=== PATIENT | female | born 1980 | race Caucasian/White ===

== ENCOUNTER → 2016-06-28 | Outpatient (CLI) | payer OTHER | END | disposition home or self-care (01) | LOC: LAB 17:07 | PROVIDERS: ATTEND Psychiatry & Neurology Psychiatry | DX: F11.20 Opioid dependence, uncomplicated (principal); Z79.899 Other long term (current) drug therapy | CPT/HCPCS: 80306 ==

== ENCOUNTER 2017-01-13 20:49 | Emergency (ER) | payer OTHER ==
[2017-01-13 21:05] VITALS: RESP 20
--- NOTE | 2017-01-13 21:12 | ED ---
Abdominal Pain HPI - General Chief Complaint: Abdominal Pain Stated Complaint: constipation Time Seen by Provider: 01/13/17 21:03 Source: patient, RN notes reviewed Mode of arrival: ambulatory Limitations: no limitations - History of Present Illness Initial Comments: 36-year-old female presents to emergency Department chief complaint constipation. Patient states she has not had a bowel movement in 6 days. She states that she feels severely constipated is causing some pain. Patient states that she has not tried any esun-jxv-fcizlrm laxatives, stool softener for an was. She states that her mother was on the way to emergency department so she figured she does come here. Patient denies any nausea, vomiting, fever, chills. Patient does have some urinary frequency no dysuria denies any flank pain denies any chance of . Patient states she does have an IUD in place. Patient denies any vaginal bleeding or vaginal discharge. Patient has ALLERGY to codeine. - Related Data Home Medications Medication Instructions Recorded Confirmed Pregabalin [Lyrica] 200 mg PO BID 01/13/17 01/13/17 QUEtiapine [SEROquel] 200 mg PO BID 01/13/17 01/13/17 Sertraline [Zoloft] 200 mg PO DAILY 01/13/17 01/13/17 cloNIDine HCL [Catapres] 0.1 mg PO BID 01/13/17 01/13/17 Allergies Allergy/AdvReac Type Severity Reaction Status Date / Time codeine Allergy Unknown Verified 01/13/17 21:20 Review of Systems ROS Statement: Those systems with pertinent positive or pertinent negative responses have been documented in the HPI. ROS Other: All systems not noted in ROS Statement are negative. Past Medical History Additional Past Medical History / Comment(s): hepatitis c, closed head injury History of Any Multi-Drug Resistant Organisms: None Reported Past Surgical History: Tonsillectomy Additional Past Surgical History / Comment(s): L hand surgery, Past Psychological History: Anxiety, Depression Smoking Status: Current every day smoker Past Alcohol Use History: None Reported Past Drug Use History: None Reported General Exam Limitations: no limitations General appearance: alert, in no apparent distress Head exam: Present: atraumatic, normocephalic, normal inspection Respiratory exam: Present: normal lung sounds bilaterally. Absent: respiratory distress, wheezes, rales, rhonchi, stridor Cardiovascular Exam: Present: regular rate, normal rhythm, normal heart sounds. Absent: systolic murmur, diastolic murmur, rubs, gallop, clicks GI/Abdominal exam: Present: soft, tenderness (Minimal diffuse), normal bowel sounds. Absent: distended, guarding, rebound, rigid Back exam: Absent: CVA tenderness (R), CVA tenderness (L) Skin exam: Present: warm, dry, intact, normal color. Absent: rash Course Vital Signs 01/13/17 21:03 Temperature 99.1 F Pulse Rate 98 Respiratory 20 Rate Blood Pressure 137/83 O2 Sat by Pulse 98 Oximetry Medical Decision Making - Medical Decision Making 36-year-old female presented emergency department for constipation. Patient's x -ray does show constipation. She was given and Motrin large bowel. She states she does feel improved from nap states that she now has some cramping nausea. Patient we given Zofran. Return parameters were discussed. Patient be discharged with magnesium citrate to continue bowel movements. Return parameters were discussed. Disposition Clinical Impression: Constipation Disposition: HOME SELF-CARE Condition: Stable Instructions: Constipation (ED) Additional Instructions: Please return to the Emergency Department if symptoms worsen or any other concerns. Referrals: Aj Galeana MD [Primary Care Provider] - 1-2 days Time of Disposition: 22:18
--- NOTE | 2017-01-13 21:47 | XR ---
EXAMINATION TYPE: XR KUB DATE OF EXAM: 01/13/2017 CLINICAL HISTORY: Constipation for one week TECHNIQUE: Supine, upright, and left side down lateral decubitus views of the abdomen are obtained. COMPARISON: 08/13/2012 FINDINGS: Scattered gas is seen in non-distended small bowel loops. Moderate amount of gas and fecal material is seen in non-distended colon. There is no visceromegaly, pneumoperitoneum, or abnormal calcification appreciated. The lung bases are clear and the osseous structures are intact. Midline i ntrauterine device is noted within the pelvis. IMPRESSION: Moderate amount of retained colonic stool within the nondilated colon and overall nonobst ructive bowel gas pattern.
[2017-01-13] MEDS ORDERED: ONDANSETRON ODT 4 MG TAB PO STA (22:14)
[2017-01-13] MEDS ORDERED: DICYCLOMINE 20 MG TAB PO STA (22:14)
[2017-01-13] MEDS ORDERED: MAGNESIUM CITRATE 296 ML BOTTLE PO ONE (22:17)
[2017-01-13 22:31] VITALS: BP 132/78; PULSE 68; TEMP 97.9
== END 2017-01-13 22:31 | disposition home or self-care (01) ==
LOC: EC 20:49
DX: K59.00 Constipation, unspecified (principal); F32.9 Major depressive disorder, single episode, unspecified; F41.9 Anxiety disorder, unspecified; F17.200 Nicotine dependence, unspecified, uncomplicated; Z97.5 Presence of (intrauterine) contraceptive device; Z88.5 Allergy status to narcotic agent; Z79.899 Other long term (current) drug therapy
CPT/HCPCS: 74000; 99284

== ENCOUNTER 2018-10-18 13:27 | Inpatient (IN) | payer OTHER ==
[2018-10-18] MEDS ORDERED: TERBUTALINE 1 MG/ML VIAL SQ PRN (15:33)
[2018-10-18] MEDS ORDERED: CARBOPROST TROMETHAMINE 250 MCG/ML 1 ML AMP IM PRN (15:33)
[2018-10-18] MEDS ORDERED: OXYTOCIN 10 UNIT/ML 1 ML VIAL IM PRN (15:33)
[2018-10-18] MEDS ORDERED: LIDOCAINE 0.5% (PF) 5 MG/ML (50 ML SDV) SQ PRN (15:33)
[2018-10-18] MEDS ORDERED: METHYLERGONOVINE 0.2 MG/ML 1 ML AMP IM PRN (15:33)
[2018-10-18] MEDS ORDERED: fentaNYL (PF) 50 MCG/ML 5 ML AMP ONE (16:00)
[2018-10-18] MEDS ORDERED: ROPIVACAINE 5MG/ML 20ML VIAL ONE (16:00)
[2018-10-18] MEDS ORDERED: SODIUM CHLORIDE 0.9% 100 ML BAG ONE (16:00)
[2018-10-18] MEDS: LACTATED RINGERS 1,000 ML IV SCH ×2 (16:13→16:58)
[2018-10-18 16:19] LABS: Basophils % (A) 0 %; Eosinophils # (A) 0.2 k/uL (0-0.7); Eosinophils % (A) 1 %; HGB 10.5 gm/dL (11.4-16.0); Lymphocytes % (A) 11 %; MCH 29.1 pg (25.0-35.0); MCHC 32.7 g/dL (31.0-37.0); MCV 88.9 fL (80.0-100.0); Mean Platelet Volume 9.5; Monocytes # (A) 0.7 k/uL (0-1.0); Monocytes % (A) 4 %; Neutrophils # (A) 15.3 k/uL (1.3-7.7); Neutrophils % (A) 84 %; Platelet Count 294 k/uL (150-450); RDW 15.7 % (11.5-15.5); WBC 18.3 k/uL (3.8-10.6)
[2018-10-18 16:22] LABS: Amphetamine Screen,Urine Detected (NotDetected); Barbiturate Screen,Urine Not Detected (NotDetected); Benzodiazepines Screen,Urine Not Detected (NotDetected); Cocaine Screen,Urine Not Detected (NotDetected); Methadone Screen, Urine Not Detected (NotDetected); Opiate Screen,Urine Detected (NotDetected); Oxycodone Screen, Urine Not Detected (NotDetected); Phencyclidine Screen,Urine Not Detected (NotDetected); Tricyclic Antidepressant,Urine Not Detected (NotDetected); Urn Cannabinoid Scrn Not Detected (NotDetected)
--- NOTE | 2018-10-18 16:30 | P.HPOB ---
History of Present Illness H&P Date: 10/18/18 Chief Complaint: IUP @ 37 0/7 weeks, active labor This is a 37-year-old 4 para 3003 at 37-0/7 weeks with an estimated due date of 11/08/18 based on last menstrual period patient presents with complaints of regular painful contractions. On initial physical exam her cervix to be 3 cm an hour later she progressed to 4-5 cm. Patient was admitted to labor and delivery for expectant management. Patient has a significant history of bipolar/substance abuse on Suboxone, smoking, anemia. Patient has been receiving care with Dr. Potts for since 30 weeks of gestation. On bloodwork should a blood type of AB+, rubella immune, RPR nonreactive, hepatitis B surface negative, HIV negative, urine drug screen was positive for amphetamines. One-hour Glucola was normal at 102, GBS is negative on 10/09/18. Review of Systems Constitutional: Reports anorexia, Denies chills, Denies fatigue, Denies fever Ears, nose, mouth and throat: Denies headache Cardiovascular: Denies leg edema Respiratory: Denies dyspnea Gastrointestinal: Denies constipation, Denies diarrhea, Denies nausea, Denies vomiting Genitourinary: Reports Past Medical History Additional Past Medical History / Comment(s): hepatitis c, closed head injury History of Any Multi-Drug Resistant Organisms: None Reported Past Surgical History: Tonsillectomy Additional Past Surgical History / Comment(s): L hand surgery, Past Anesthesia/Blood Transfusion Reactions: No Reported Reaction Past Psychological History: Anxiety, Depression Smoking Status: Current every day smoker Past Alcohol Use History: None Reported Past Drug Use History: None Reported - Past Family History Mother Family Medical History: No Reported History Medications and Allergies Home Medications Medication Instructions Recorded Confirmed Type Pregabalin [Lyrica] 200 mg PO BID 01/13/17 10/18/18 History Buprenorphine HCl/Naloxone HCl 1 film PO BID 10/18/18 10/18/18 History [Suboxone 8 mg-2 mg Sl Film] Lisdexamfetamine Dimesylate 1 cap PO DAILY 10/18/18 10/18/18 History [Vyvanse] Venlafaxine HCl [Effexor] 1 tab PO DAILY 10/18/18 10/18/18 History lamoTRIgine [LaMICtal] 1 tab PO DAILY 10/18/18 10/18/18 History Allergies Allergy/AdvReac Type Severity Reaction Status Date / Time codeine Allergy Unknown Verified 10/18/18 13:46 Exam Osteopathic Statement: *. No significant issues noted on an osteopathic s tructural exam other than those noted in the History and Physical/Consult. Vital Signs Temp Pulse Resp BP 10/18/18 15:31 97.2 F L 115 H 18 127/85 Intake and Output 10/18/18 10/18/18 10/18/18 06:59 14:59 22:59 Other: Weight 165 kg Targeted physical exam is performed in this date in general this is a well-nourished well-developed female in no acute distress, breathing is noted to be nonlabored, heart is known to have a regular rate and rhythm, abdomen is noted be gravid, on cervical exam she is 6/100/-2 amniotomy is performed and clear fluid was obtained. heart tones are noted to be category 1 and she is jairo every 2-3 minutes. Results Result Diagrams: 10/18/18 15:43 Abnormal Lab Results - Last 24 Hours (Table) 10/18/18 10/18/18 Range/Units 15:43 16:00 WBC 18.3 H (3.8-10.6) k/uL RBC 3.60 L (3.80-5.40) m/uL Hgb 10.5 L (11.4-16.0) gm/dL Hct 32.0 L (34.0-46.0) % RDW 15.7 H (11.5-15.5) % Neutrophils # 15.3 H (1.3-7.7) k/uL Urine Opiates Screen Detected H (NotDetected) Ur Amphetamines Screen Detected H (NotDetected) Assessment and Plan (1) Term Current Visit: Yes Status: Acute Code(s): Z34.90 - ENCNTR FOR SUPRVSN OF NORMAL , UNSP, UNSP TRIMESTER SNOMED Code(s): 28981532 (2) Active labor Current Visit: Yes Status: Acute Code(s): CYD2391 - SNOMED Code(s): 355104496 Plan: Plan expectant management, she does request epidural placement and anesthesia was notified. Anticipate spontaneous vaginal delivery this afternoon.
[2018-10-18] MEDS ORDERED: OXYTOCIN 30 UNITS/500 ML NS 30 UNIT in SALINE 1 500ML.BAG IV SCH (17:00)
[2018-10-18] MEDS ORDERED: ACETAMINOPHEN TAB 325 MG TAB PO PRN (18:59)
[2018-10-18] MEDS ORDERED: BENZOCAINE/MENTHOL SPRAY 1 GM/SPRAY AEROSOL TOPICAL PRN (18:59)
[2018-10-18] MEDS ORDERED: HYDROcodone/APAP 5-325MG 1 EACH TAB PO PRN (18:59)
[2018-10-18] MEDS ORDERED: diphenhydrAMINE 50 MG CAP PO PRN (18:59)
[2018-10-18] MEDS ORDERED: SIMETHICONE 80 MG CHEWABLE PO PRN (18:59)
[2018-10-18] MEDS ORDERED: ZOLPIDEM 5 MG TAB PO PRN (18:59)
[2018-10-18] MEDS ORDERED: LANOLIN CREAM 5 GM TUBE TOPICAL PRN (18:59)
[2018-10-18] MEDS ORDERED: HYDROCORTISONE 2.5% RECTAL CREAM 30 GM TUBE RECTAL PRN (18:59)
[2018-10-18] MEDS ORDERED: diphenhydrAMINE 25 MG CAP PO PRN (18:59)
[2018-10-18] MEDS ORDERED: WITCH HAZEL 1 EACH MED..PAD TOPICAL PRN (18:59)
[2018-10-18] MEDS ORDERED: diphenhydrAMINE 50 MG/ML 1 ML VIAL IVP PRN ×2 (18:59)
[2018-10-18] MEDS ORDERED: OXYTOCIN 20 UNITS/1000 ML NS 1,000 ML IV SCH (19:00)
--- NOTE | 2018-10-18 19:03 | P.PROBDLV ---
Vaginal Delivery Note - . Vaginal Delivery Note: This is a 37-year-old 4 para 3003 that presented to labor and delivery with complaints of regular painful contractions. Patient was noting green discharge in addition amnio sure was negative. Patient did progress from 3-4-5 cm over an hour. Patient was admitted to labor and delivery and amniotomy was performed clear fluid was obtained. Patient requested epidural was placed by anesthesia without difficulty. Patient had contractions that were noted to be spacing out every 10 minutes and irregular nature after epidural placement therefore Pitocin augmentation of labor was begun. Patient progressed to complete began pushing and had a normal spontaneous vaginal delivery of a viable male infant at 1844, Apgars of 8 and 9 at one and 5 minutes respectively. Weight is pending as infant was being assessed by the delivery technician. Afterwards the umbilical cord was doubly clamped and cut and the placenta was delivered spontaneously intact with a three-vessel cord being noted. On inspection the patient's vaginal vault no lacerations were noted. Uterus is noted to be firm and below the umbilicus and lochia was minimal at this time. Estimated blood loss 200 mL, patient and infant tolerated delivery well and are resting comfortably of note WERE correct 2.
[2018-10-18] MEDS: IBUPROFEN 600 MG TAB PO PRN (19:38)
[2018-10-18] MEDS: SENNOSIDES-DOCUSATE SODIUM 1 EACH TAB PO SCH (21:23)
[2018-10-18] MEDS: PREGABALIN 100 MG CAP PO SCH (21:37)
[2018-10-19] MEDS: IBUPROFEN 600 MG TAB PO PRN ×4 (04:09→22:55)
[2018-10-19 05:40] LABS: Basophils % (A) 0 %; Eosinophils # (A) 0.1 k/uL (0-0.7); Eosinophils % (A) 1 %; HCT 30.9 % (34.0-46.0); HGB 10.2 gm/dL (11.4-16.0); Lymphocytes # (A) 2.5 k/uL (1.0-4.8); Lymphocytes % (A) 16 %; MCH 29.6 pg (25.0-35.0); MCHC 32.9 g/dL (31.0-37.0); MCV 89.9 fL (80.0-100.0); Mean Platelet Volume 10.1; Monocytes # (A) 0.6 k/uL (0-1.0); Monocytes % (A) 4 %; Neutrophils # (A) 12.1 k/uL (1.3-7.7); Neutrophils % (A) 78 %; Platelet Count 233 k/uL (150-450); RBC 3.44 m/uL (3.80-5.40); RDW 15.4 % (11.5-15.5); WBC 15.5 k/uL (3.8-10.6)
[2018-10-19] MEDS: SENNOSIDES-DOCUSATE SODIUM 1 EACH TAB PO SCH ×2 (08:08→20:08)
--- NOTE | 2018-10-19 08:37 | P.PNOBGVD ---
Subjective - Subjective Principal diagnosis: PPD 1 Interval history: Patient is doing well. She is involuting and voiding without difficulty. She states her lochia is moderate. She is bottle feeding. Pain is controlled with ibuprofen. Patient reports: Reports appetite normal, Reports voiding normally, Reports pain well controlled, Reports ambulating normally [place]: doing well (In the special care nursery) Objective - Latest Vital Signs Latest vital signs: Vital Signs Temp Pulse Resp BP 10/19/18 08:00 97.6 F 81 16 129/81 10/19/18 04:00 97.8 F 89 16 119/85 10/19/18 00:00 98.1 F 98 16 140/87 10/18/18 21:01 105 H 16 141/95 10/18/18 20:31 99 16 143/99 10/18/18 20:01 99 16 143/99 10/18/18 19:46 98 16 141/107 10/18/18 19:31 106 H 16 138/93 10/18/18 19:16 100 18 130/93 10/18/18 19:01 102 H 16 125/85 10/18/18 15:31 97.2 F L 115 H 18 127/85 Intake and Output 10/18/18 10/19/18 10/19/18 22:59 06:59 14:59 Intake Total 582.75 1600 Balance 582.75 1600 Intake: IV 1600 Oxytocin 20 Units/1000 ml 1600 Ns 1,000 ml @ Per Protocol IV .Q0M CAITLIN Rx#: [id number] Intake, IV Titration 582.75 Amount Oxytocin 20 Units/1000 ml 582.75 Ns 1,000 ml @ Per Protocol IV .Q0M CAITLIN Rx#: [id number] Other: # Voids 1 1 - Exam Extremities: Present: normal Abdomen: Present: normal appearance, soft Uterus: Present: normal, firm - Labs Labs: Abnormal Lab Results - Last 24 Hours (Table) 10/18/18 10/18/18 10/19/18 Range/Units 15:43 16:00 05:30 WBC 18.3 H 15.5 H (3.8-10.6) k/uL RBC 3.60 L 3.44 L (3.80-5.40) m/uL Hgb 10.5 L 10.2 L (11.4-16.0) gm/dL Hct 32.0 L 30.9 L (34.0-46.0) % RDW 15.7 H (11.5-15.5) % Neutrophils # 15.3 H 12.1 H (1.3-7.7) k/uL Urine Opiates Screen Detected H (NotDetected) Ur Amphetamines Screen Detected H (NotDetected) Assessment and Plan (1) Term Current Visit: Yes Status: Acute Code(s): Z34.90 - ENCNTR FOR SUPRVSN OF NORMAL , UNSP, UNSP TRIMESTER SNOMED Code(s): 80601125 (2) Active labor Current Visit: Yes Status: Acute Code(s): FKX0215 - SNOMED Code(s): 697670769 (3) Status post vaginal delivery Current Visit: Yes Status: Acute Code(s): UQM7440 - SNOMED Code(s): 938513757 Plan: remains in the special care nursery therefore Priyanka would like to stay until tomorrow. She is doing well overall and I anticipate discharge tomorrow morning.
[2018-10-19] MEDS: VENLAFAXINE HCL ER 75 MG CAP PO SCH (09:04)
[2018-10-19] MEDS: lamoTRIgine 100 MG TAB PO SCH (09:05)
[2018-10-19] MEDS: [UNRECOGNIZED DRUG - OTHER] PO SCH (10:26)
[2018-10-19] MEDS: PREGABALIN 100 MG CAP PO SCH ×2 (10:27→20:08)
[2018-10-20] MEDS: [UNRECOGNIZED DRUG - OTHER] PO SCH (08:00)
[2018-10-20] MEDS: SENNOSIDES-DOCUSATE SODIUM 1 EACH TAB PO SCH ×2 (08:00→21:07)
[2018-10-20] MEDS: PREGABALIN 100 MG CAP PO SCH ×2 (08:00→21:08)
--- NOTE | 2018-10-20 08:41 | P.DS ---
Providers Date of admission: 10/18/18 15:20 Expected date of discharge: 10/20/18 Attending physician: Jessica Kyle Primary care physician: Stated None Hospital Course: This is a 37-year-old white female 4 para 3003 who presented at 37 weeks gestation, with strong regular uterine contractions in active labor. is essentially unremarkable, group B strep cultures negative, rubella status immune, blood type AB+. Please see dictated history and physical for details. Artificial amniorrhexis revealed clear fluid. Patient went on to swiftly deliver a liveborn male with scores of 8 and 9 at one and 5 minutes respectively. He weighed 6 lbs. 14 oz. or 3110 g. There was said to be a slightly foul odor at the time of delivery. Please see dictated delivery note for details. This morning the patient is doing well. She is voiding, ambulating and passing flatus without difficulty. Vital signs are stable and she is afebrile. Fundus is firm and in the midline, symmetric and 18 week size. Extremities are negative for edema. visitor services specialist consult has been ordered, it is pending this morning. [place] is in the nursery, and is not judged to be stable yet for discharge home. She'll services consultation has been completed, patient will be discharged home later today. I have reminded her no intercourse, tampons or douching. She will use [id number] Motrin products as needed for pain. I've asked her to call me with any fevers shakes or chills, foul smelling or copious lochia, with the passage of large blood clots, with any pain not alleviated by nowr-aqn-djiuogk Advil or Aleve, or indeed with any concerns. Circumcision will be performed on the baby when cleared by pediatricians. Patient Condition at Discharge: Good Plan - Discharge Summary Discharge Rx Participant: Yes New Discharge Prescriptions: No Action Pregabalin [Lyrica] 200 mg PO BID lamoTRIgine [LaMICtal] 1 tab PO DAILY Venlafaxine HCl [Effexor] 1 tab PO DAILY Buprenorphine HCl/Naloxone HCl [Suboxone 8 mg-2 mg Sl Film] 1 film PO BID Lisdexamfetamine Dimesylate [Vyvanse] 1 cap PO DAILY Discharge Medication List Pregabalin [Lyrica] 200 mg PO BID 01/13/17 [History] Buprenorphine HCl/Naloxone HCl [Suboxone 8 mg-2 mg Sl Film] 1 film PO BID 10/18/18 [History] Lisdexamfetamine Dimesylate [Vyvanse] 1 cap PO DAILY 10/18/18 [History] Venlafaxine HCl [Effexor] 1 tab PO DAILY 10/18/18 [History] lamoTRIgine [LaMICtal] 1 tab PO DAILY 10/18/18 [History] Follow up Appointment(s)/Referral(s): Ara Potts MD [STAFF PHYSICIAN] - 6 Weeks
[2018-10-20] MEDS: lamoTRIgine 100 MG TAB PO SCH (08:42)
[2018-10-20] MEDS: VENLAFAXINE HCL ER 75 MG CAP PO SCH (08:43)
[2018-10-20] MEDS: IBUPROFEN 600 MG TAB PO PRN ×3 (08:43→21:08)
[2018-10-20 10:50] LABS: Uric Acid 4.2 mg/dL (3.7-7.4)
[2018-10-20] MEDS: LABETALOL 200 MG TAB PO SCH (18:59)
--- NOTE | 2018-10-20 19:09 | P.CONS ---
History of Present Illness - Reason for Consult Consult date: 10/20/18 Elevated BP Requesting physician: Ara Potts - Chief Complaint Elevated BP - History of Present Illness 37-year-old female with PMH of hepatitis C, bipolar, anxiety and depression, previous history of drug use currently in a rehab program presented to the ED for painful contractions. She had a normal spontaneous vaginal delivery on 10/18/2018. There were no complications reported. [facility] has been consulted for medical management of this patient due to elevated blood pressure. Patient has been seeing Dr. Potts since 30 weeks gestation for care. Patient has never had an elevated BP during her visits. Patient's blood pressure today has been running high as high as 150/100. Patient reports a history of hypertension after one of her pregnancies, was on antihypertensives for 6 weeks. Patient complains that she suffered dizziness as a side effect of that medication. Patient also reports that she has been prescribed Catapres to take as needed for high BP. She has never been formally diagnosed with high blood pressure. Patient denies any history of cardiac or kidney disease. Patient denies diabetes mellitus or hyperlipidemia. Patient currently denies any headaches, nausea/vomiting, chest pain, shortness of breath, dizziness, numbness/weakness/tingling. Review of Systems Pertinent positives and negatives as discussed in HPI, a complete review of systems was performed and all other systems are negative. Past Medical History Additional Past Medical History / Comment(s): hepatitis c, closed head injury History of Any Multi-Drug Resistant Organisms: None Reported Past Surgical History: Tonsillectomy Additional Past Surgical History / Comment(s): L hand surgery, Past Anesthesia/Blood Transfusion Reactions: No Reported Reaction Past Psychological History: Anxiety, Depression Smoking Status: Current every day smoker Past Alcohol Use History: None Reported Past Drug Use History: None Reported - Past Family History Mother Family Medical History: No Reported History Medications and Allergies Home Medications Medication Instructions Recorded Confirmed Type Pregabalin [Lyrica] 200 mg PO BID 01/13/17 10/18/18 History Buprenorphine HCl/Naloxone HCl 1 film PO BID 10/18/18 10/18/18 History [Suboxone 8 mg-2 mg Sl Film] Lisdexamfetamine Dimesylate 1 cap PO DAILY 10/18/18 10/18/18 History [Vyvanse] Venlafaxine HCl [Effexor] 1 tab PO DAILY 10/18/18 10/18/18 History lamoTRIgine [LaMICtal] 1 tab PO DAILY 10/18/18 10/18/18 History Allergies Allergy/AdvReac Type Severity Reaction Status Date / Time codeine Allergy Unknown Verified 10/18/18 13:46 Physical Exam Vitals: Vital Signs Temp Pulse Resp BP Pulse Ox 10/20/18 15:43 150/100 10/20/18 15:39 147/92 10/20/18 15:35 98.2 F 64 18 147/104 99 10/20/18 13:00 98.2 F 90 18 147/88 98 10/20/18 08:41 98.0 F 65 18 148/91 98 10/19/18 23:28 97.6 F 69 18 127/91 100 General: [non toxic], [no distress], [appears at stated age] Derm: [warm], [dry] Head: [atraumatic], [normocephalic], [symmetric] Psych: [Alert], [oriented], [appropriate affect] Results CBC & Chem 7: 10/19/18 05:30 Labs: Abnormal Lab Results - Last 24 Hours (Table) 10/20/18 Range/Units 09:38 AST 42 H (14-36) U/L Assessment and Plan Assessment: Assessment and Plan 1. Elevated BP 2. Abnormal UDS 3. Leukocytosis 4. Anemia 5. Elevated AST 1. BP as high as 150/100. Patient reports never being diagnosed with hypertension. Low concerns for help syndrome or for preeclampsia. Patient also appears very anxious at this time and combative with nurses which could be elevating her BP. Plan: Discussed with Dr. Potts, plans to start Labetalol 200 mg by mouth twice a day. Vital sign assessment every 8 hours. Ensure adequate pain management. Ensure the patient is calm, allowed to see her baby. 2. Amphetamine on drug screen likely secondary to home medication use for ADHD. Patient states that she is on Suboxone, but unsure why UDS is positive for opiates. 3. Leukocytosis of 15.2 with neutrophilia. No signs of infection. Patient is afebrile. Likely secondary to stressors of . Plans: Continue to monitor. 4. Hemoglobin 10.5-10.2. Possibly acute blood loss from . No signs of active bleed. Plans: Continue to monitor. 5. AST 42. Unknown significance. Related to hepatitis C? Plans: Continue to monitor. Patient with normal spontaneous vaginal delivery. Found to have elevated BP in . Started on labetalol. Monitor vitals overnight. Plans for DC if improved. Thank you for this consult. Please call [facility] with any additional questions.
--- NOTE | 2018-10-20 19:09 | P.PN ---
Subjective Progress Note Date: 10/20/18 Principal diagnosis: day #2, elevated blood pressure Patient denies headache, visual changes, or right upper quadrant pain. Objective - Vital Signs Vital signs: Vital Signs Temp 98.2 F 10/20/18 15:35 Pulse 64 10/20/18 15:35 Resp 18 10/20/18 15:35 BP 150/100 10/20/18 15:43 Pulse Ox 99 10/20/18 15:35 - Constitutional General appearance: Present: average body habitus, cooperative - EENT Eyes: Present: PERRLA ENT: Present: hearing grossly normal - Respiratory Respiratory: bilateral: CTA - Cardiovascular Rhythm: regular - Gastrointestinal General gastrointestinal: Present: normal bowel sounds - Integumentary Integumentary: Present: normal - Neurologic Neurologic: Present: CNII-XII intact - Musculoskeletal Musculoskeletal: Present: gait normal, strength equal bilaterally - Psychiatric Psychiatric: Present: A&O x's 3, intact judgment & insight - Labs CBC & Chem 7: 10/19/18 05:30 Labs: Abnormal Lab Results - Last 24 Hours (Table) 10/20/18 Range/Units 09:38 AST 42 H (14-36) U/L Assessment and Plan Assessment: day #2, recently elevated blood pressures. Plan: I had a long conversation at the bedside with the patient, and Dr. Silva of [facility]. Patient is agitated, stating she does not like nurse Ghislaine and has concerns about her son. 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 She has random drug screens to which she has been accountable , all of which have been negative. Patient does not understand how her urine drug screen with this admission was positive for opiates. She does see a psychiatrist for bipolar disorder, Dr. Billy, in [place], once monthly. She also sees a therapist Nick Priest every 2 weeks, and has an appointment with her tomorrow at 7 PM. Earlier the patient had a somewhat confrontational conversation with hGislaine, and her Efren did as well. Efren has left the building at this time. Blood pressure on admission was 127/85, and patient was normotensive throughout the 7 weeks of her through which I cared for her. Earlier this afternoon blood pressures elevated to the 140-150/90 to 100s range. Even though I discharged patient this morning, I canceled the discharge. Labs were drawn and are essentially within normal limits. Again, she denies headache, visual changes, or right upper quadrant pain. She feels that her bipolar disorder is under good control at this time. She believes her blood pressure is high due to agitation with the nursing staff and seeing her son in the nursery, unable to be discharged home with her. In addition, she was upset with the social media project manager consult that I ordered previously today but understands the rationale for the consult. The patient denies suicidal or homicidal ideation, she stsates she feels happy, but is worried about her son. At this time Dr. Silva and I have elected to begin the patient on labetalol 200 mg twice daily. We will check blood pressures every 4 hours while awake, and likely discharge patient home tomorrow pending improvement in blood pressure levels. Patient is reminded that we are available to her 24 hours a day, and w ill call for a physician tonight if she chooses. Nurse Scanlon is ending her shift and will no longer care for the patient. This is also been discussed with the charge nurse for tonight, staff is aware. Time with Patient: Greater than 30
--- NOTE | 2018-10-21 07:40 | P.DS ---
Providers Date of admission: 10/18/18 15:20 Expected date of discharge: 10/21/18 Attending physician: Jessica Kyle Consults: 10/20/18 16:45 Consult Physician Urgent Consulting Provider: [facility] [employer] Consult Reason/Comments: post patient with elevated b/p's. please consult maddie Do you want consulting provider notified?: Yes Primary care physician: Stated None Hospital Course: This is an addendum to the previously dictated discharge summary. Discharge yesterday was canceled secondary to elevated blood pressures, 150s over 100s. Please see my additionally dictated note. Sound physicians were consulted and patient was started on labetalol 200 mg twice a day. Blood pressure has normalized since that time. Patient feels well today, denies headache visual changes or right upper quadrant pain. Plan is for discharge home at this time. She will follow-up in the office with me in 2 weeks. Previous instructions as dictated yesterday applied. Patient Condition at Discharge: Good Plan - Discharge Summary Discharge Rx Participant: No New Discharge Prescriptions: No Action Pregabalin [Lyrica] 200 mg PO BID lamoTRIgine [LaMICtal] 1 tab PO DAILY Venlafaxine HCl [Effexor] 1 tab PO DAILY Buprenorphine HCl/Naloxone HCl [Suboxone 8 mg-2 mg Sl Film] 1 film PO BID Lisdexamfetamine Dimesylate [Vyvanse] 1 cap PO DAILY Discharge Medication List Pregabalin [Lyrica] 200 mg PO BID 01/13/17 [History] Buprenorphine HCl/Naloxone HCl [Suboxone 8 mg-2 mg Sl Film] 1 film PO BID 10/18/18 [History] Lisdexamfetamine Dimesylate [Vyvanse] 1 cap PO DAILY 10/18/18 [History] Venlafaxine HCl [Effexor] 1 tab PO DAILY 10/18/18 [History] lamoTRIgine [LaMICtal] 1 tab PO DAILY 10/18/18 [History] Follow up Appointment(s)/Referral(s): Ara Potts MD [STAFF PHYSICIAN] - 2 Weeks Discharge Disposition: HOME SELF-CARE
[2018-10-21] MEDS: IBUPROFEN 600 MG TAB PO PRN (09:17)
[2018-10-21] MEDS: SENNOSIDES-DOCUSATE SODIUM 1 EACH TAB PO SCH (09:17)
[2018-10-21] MEDS: LABETALOL 200 MG TAB PO SCH (09:19)
[2018-10-21] MEDS: VENLAFAXINE HCL ER 75 MG CAP PO SCH (09:20)
[2018-10-21] MEDS: PREGABALIN 100 MG CAP PO SCH (09:20)
[2018-10-21] MEDS: lamoTRIgine 100 MG TAB PO SCH (09:22)
[2018-10-21] MEDS: [UNRECOGNIZED DRUG - OTHER] PO SCH (09:23)
[2018-10-21 09:28] VITALS: BP 133/91; PULSE 84; RESP 18; TEMP 98.2
== END 2018-10-21 13:15 | disposition home or self-care (01) | DRG 807 ==
LOC: FBPOP 13:27 → 4FBP 15:20
PROVIDERS: ADMIT Obstetrics & Gynecology Obstetrics; ATTEND Obstetrics & Gynecology Obstetrics
PROC: 10E0XZZ Delivery of Products of Conception, External Approach (ICD-10-PCS; principal; 2018-10-18)
PROC: 00HU33Z Insertion of Infusion Device into Spinal Canal, Percutaneous Approach (ICD-10-PCS; 2018-10-18)
PROC: 3E0R3BZ Introduction of Anesthetic Agent into Spinal Canal, Percutaneous Approach (ICD-10-PCS; 2018-10-18)
DX: O99.12 Other diseases of the blood and blood-forming organs and certain disorders involving the immune mechanism complicating childbirth (principal); Z37.0 Single live birth; O99.344 Other mental disorders complicating childbirth; R03.0 Elevated blood-pressure reading, without diagnosis of hypertension; D72.829 Elevated white blood cell count, unspecified; O99.02 Anemia complicating childbirth; D64.9 Anemia, unspecified; O99.334 Smoking (tobacco) complicating childbirth; F17.210 Nicotine dependence, cigarettes, uncomplicated; F90.9 Attention-deficit hyperactivity disorder, unspecified type; F41.9 Anxiety disorder, unspecified; F31.9 Bipolar disorder, unspecified; Z3A.37 37 weeks gestation of pregnancy; B19.20 Unspecified viral hepatitis C without hepatic coma; Z79.899 Other long term (current) drug therapy; Z98.890 Other specified postprocedural states; Z88.5 Allergy status to narcotic agent
CPT/HCPCS: 59025; 80306; 84112; 84450; 84460; 84550; 85025; 86850; 86900; 86901; 88307; 99213

== ENCOUNTER 2021-10-02 05:21 | Emergency (ER) | payer OTHER ==
[2021-10-02 05:28] VITALS: TEMP 98.3
[2021-10-02] MEDS ORDERED: ONDANSETRON ODT 4 MG TAB PO STA (05:50)
[2021-10-02] MEDS ORDERED: SODIUM CHLORIDE 0.9% 1,000 ML IV ONE (06:03)
--- NOTE | 2021-10-02 06:33 | US ---
EXAMINATION TYPE: US OB >= 14 wk fetus DATE OF EXAM: 10/02/2021 COMPARISON: None CLINICAL HISTORY: date pain. Positive beta hCG test. TECHNIQUE: Transabdominal (TA) GESTATIONAL AGE / DATING Physician Established: Not yet established Dates by LMP: LMP unknown Dates by First Scan: No previous this is first scan Dates by Current Scan: (17 weeks/6 days) EDC: 03/06/2022 Beta HCG (if available): Not available at this time SURVEY IUP: Single PLACENTA: Posterior PREVIA: No Previa SANDOR: wnl CERVICAL LENGTH (transabdominal: norm > 3.0cm): 4 cm BIOMETRY PRESENTATION: Variable LIE: Variable BPD: 4.09 cm 18 weeks / 3 days HC: 14.76 cm 17 weeks / 6 days AC: 12.83 cm 18 weeks / 3 days FL: 2.44 cm 17 weeks / 3 days ESTIMATED WEIGHT IN GRAMS: 215.85 grams ESTIMATED WEIGHT IN LBS/OZ: 0 lbs. 8 oz. WEIGHT PERCENTAGE BASED ON HC/AC: 1.15cm Normal FL/AC: 19.05 cm HEART RATE: 161 bpm RHYTHM: Normal Single live intrauterine gestation is confirmed as gestational sac and pole are present. Yolk s ac not identified. Cervix length within normal limits. No placenta previa. Estimated amniotic fluid i ndex within normal limits. Variable presentation fetus noted. Biometry measurements congruent and wit hin normal limits. IMPRESSION: Confirmation of single live intrauterine gestation estimated beginning of the second trim devonte as detailed above.
[2021-10-02] MEDS ORDERED: METOCLOPRAMIDE 5 MG/ML 2 ML VIAL IVP STA (06:37)
[2021-10-02] MEDS ORDERED: ACETAMINOPHEN TAB 500 MG TAB PO STA (06:37)
--- NOTE | 2021-10-02 06:43 | ED ---
General Adult HPI - General Chief complaint: Abdominal Pain Stated complaint: , detoxing Time Seen by Provider: 10/02/21 06:02 Source: patient Mode of arrival: wheelchair - History of Present Illness Initial comments: Patient is a female currently about 4 weeks by last LMP sometime in May presents to the emergency room for abdominal pain. Patient has been in [facility] for the past couple days and is withdrawing off heroin. Patient started to have abdominal pain and nausea vomiting last night. States her legs hurt as well. No fevers. Patient knew she was as of only a few weeks ago, in no care in the past for this . Patient has no other complaints at this time including shortness of breath, chest pain, nausea or vomiting, headache, or visual changes. - Related Data Home Medications Medication Instructions Recorded Confirmed Pregabalin [Lyrica] 150 mg PO TID 01/13/17 07/17/19 Buprenorphine HCl/Naloxone HCl 1 film PO BID 10/18/18 07/17/19 [Suboxone 8 mg-2 mg Sl Film] Lisdexamfetamine Dimesylate 70 mg PO DAILY 10/18/18 07/17/19 [Vyvanse] Venlafaxine HCl [Effexor] 150 mg PO QAM 10/18/18 07/17/19 lamoTRIgine [LaMICtal] 200 mg PO QAM 07/17/19 07/17/19 Allergies Allergy/AdvReac Type Severity Reaction Status Date / Time codeine Allergy Unknown Verified 10/02/21 05:28 Review of Systems ROS Statement: Those systems with pertinent positive or pertinent negative responses have been documented in the HPI. ROS Other: All systems not noted in ROS Statement are negative. Past Medical History Past Medical History: Asthma, Liver Disease Additional Past Medical History / Comment(s): hepatitis c-no current problems, closed head injury as child, allergy induced asthma, no current rx History of Any Multi-Drug Resistant Organisms: None Reported Past Surgical History: Tonsillectomy Additional Past Surgical History / Comment(s): L hand surgery, left leg surg. related to dog bite-wound cleaned out Past Anesthesia/Blood Transfusion Reactions: No Reported Reaction Past Psychological History: ADD/ADHD, Anxiety, Depression Past Alcohol Use History: None Reported Past Drug Use History: Heroin - Past Family History Mother Family Medical History: No Reported History General Exam General appearance: alert, in no apparent distress Head exam: Present: atraumatic, normocephalic, normal inspection Eye exam: Present: normal appearance, PERRL, EOMI. Absent: scleral icterus, conjunctival injection, periorbital swelling ENT exam: Present: normal exam, mucous membranes moist Neck exam: Present: normal inspection, full ROM. Absent: tenderness, meningismus, lymphadenopathy Respiratory exam: Present: normal lung sounds bilaterally. Absent: respiratory distress, wheezes, rales, rhonchi, stridor Cardiovascular Exam: Present: regular rate, normal rhythm, normal heart sounds. Absent: systolic murmur, diastolic murmur, rubs, gallop, clicks GI/Abdominal exam: Present: soft, tenderness (mild generalized abdominal tenderness), normal bowel sounds. Absent: distended, guarding, rebound, rigid External exam: Present: normal external exam. Absent: erythema, swelling, lesions, lacerations, ecchymosis Speculum exam: Present: vaginal discharge (white thin discharge). Absent: erythema, vaginal bleeding, foreign body, tissue, laceration By manual exam: Present: uterine tenderness. Absent: cervical motion tenderness, adnexal tenderness Neurological exam: Present: alert Course Vital Signs 10/02/21 10/02/21 05:24 06:00 Temperature 98.3 F Pulse Rate 73 68 Respiratory 18 16 Rate Blood Pressure 134/80 132/87 O2 Sat by Pulse 100 98 Oximetry Medical Decision Making - Medical Decision Making Vitals are stable. Patient is well-appearing although did vomit once in the emergency room. Patient has had no care. HPI and physical exam as documented. No bleeding on pelvic exam. CBC CMP unremarkable. Urinalysis does show 4+ ketones likely secondary to dehydration. Troponin is negative. Drug screen positive for opiates, methadone, amphetamines, methamphetamines, and cocaine. Patient last received methadone yesterday. Ultrasound was obtained which showed a single live intrauterine gestation estimated beginning of second trimester about 17 weeks. Discussed case with Dr. Sanders who is on-call for patient's COATER HELPER Dr. Potts. At this time recommends continuing methadone and following up in the office. Patient was given fluids. She will be discharged back to [facility]. - Lab Data Result diagrams: 10/02/21 06:39 10/02/21 06:39 Lab Results 10/02/21 10/02/21 10/02/21 Range/Units 06:39 06:39 06:39 WBC 12.3 H (3.8-10.6) k/uL RBC 4.13 (3.80-5.40) m/uL Hgb 11.8 (11.4-16.0) gm/dL Hct 35.7 (34.0-46.0) % MCV 86.6 (80.0-100.0) fL MCH 28.5 (25.0-35.0) pg MCHC 33.0 (31.0-37.0) g/dL RDW 12.9 (11.5-15.5) % Plt Count 460 H (150-450) k/uL MPV 7.5 Neutrophils % 89 % Lymphocytes % 7 % Monocytes % 2 % Eosinophils % 1 % Basophils % 0 % Neutrophils # 10.9 H (1.3-7.7) k/uL Lymphocytes # 0.9 L (1.0-4.8) k/uL Monocytes # 0.3 (0-1.0) k/uL Eosinophils # 0.2 (0-0.7) k/uL Basophils # 0.0 (0-0.2) k/uL Sodium 135 L (137-145) mmol/L Potassium 3.8 (3.5-5.1) mmol/L Chloride 105 (98-107) mmol/L Carbon Dioxide 16 L (22-30) mmol/L Anion Gap 14 mmol/L BUN 10 (7-17) mg/dL Creatinine 0.51 L (0.52-1.04) mg/dL Est GFR (CKD-EPI)AfAm >90 (>60 ml/min/1.73 sqM) Est GFR (CKD-EPI)NonAf >90 (>60 ml/min/1.73 sqM) Glucose 102 H (74-99) mg/dL Calcium 9.3 (8.4-10.2) mg/dL Total Bilirubin 1.0 (0.2-1.3) mg/dL AST 23 (14-36) U/L ALT 18 (4-34) U/L Alkaline Phosphatase 93 (38-126) U/L Total Protein 7.5 (6.3-8.2) g/dL Albumin 4.3 (3.5-5.0) g/dL Urine Color Yellow Urine Appearance Turbid H (Clear) Urine pH 7.5 (5.0-8.0) Ur Specific [place] 1.024 (1.001-1.035) Urine Protein 1+ H (Negative) Urine Glucose (UA) Negative (Negative) Urine Ketones 4+ H (Negative) Urine Blood Negative (Negative) Urine Nitrite Negative (Negative) Urine Bilirubin Negative (Negative) Urine Urobilinogen <2.0 (<2.0) mg/dL Ur Leukocyte Esterase Moderate H (Negative) Urine WBC 7 H (0-5) /hpf Ur Squamous Epith Cells 36 H (0-4) /hpf Amorphous Sediment Rare H (None) /hpf Urine Bacteria Occasional H (None) /hpf Urine Mucus Moderate H (None) /hpf Urine Opiates Screen (NotDetected) Ur Oxycodone Screen (NotDetected) Urine Methadone Screen (NotDetected) Ur Propoxyphene Screen (NotDetected) Ur Barbiturates Screen (NotDetected) U Tricyclic Antidepress (NotDetected) Ur Phencyclidine Scrn (NotDetected) Ur Amphetamines Screen (NotDetected) U Methamphetamines Scrn (NotDetected) U Benzodiazepines Scrn (NotDetected) Urine Cocaine Screen (NotDetected) U Marijuana (THC) Screen (NotDetected) Coronavirus (PCR) (Not Detectd) Influenza Type A RNA (Not Detectd) Influenza Type B (PCR) (Not Detectd) Trichomonas Ag (Rapid) (Negative) Blood Type Blood Type Recheck Bld Type Recheck Status Antibody Screen Spec Expiration Date 10/02/21 10/02/21 10/02/21 Range/Units 06:39 06:39 06:39 WBC (3.8-10.6) k/uL RBC (3.80-5.40) m/uL Hgb (11.4-16.0) gm/dL Hct (34.0-46.0) % MCV (80.0-100.0) fL MCH (25.0-35.0) pg MCHC (31.0-37.0) g/dL RDW (11.5-15.5) % Plt Count (150-450) k/uL MPV Neutrophils % % Lymphocytes % % Monocytes % % Eosinophils % % Basophils % % Neutrophils # (1.3-7.7) k/uL Lymphocytes # (1.0-4.8) k/uL Monocytes # (0-1.0) k/uL Eosinophils # (0-0.7) k/uL Basophils # (0-0.2) k/uL Sodium (137-145) mmol/L Potassium (3.5-5.1) mmol/L Chloride (98-107) mmol/L Carbon Dioxide (22-30) mmol/L Anion Gap mmol/L BUN (7-17) mg/dL Creatinine (0.52-1.04) mg/dL Est GFR (CKD-EPI)AfAm (>60 ml/min/1.73 sqM) Est GFR (CKD-EPI)NonAf (>60 ml/min/1.73 sqM) Glucose (74-99) mg/dL Calcium (8.4-10.2) mg/dL Total Bilirubin (0.2-1.3) mg/dL AST (14-36) U/L ALT (4-34) U/L Alkaline Phosphatase (38-126) U/L Total Protein (6.3-8.2) g/dL Albumin (3.5-5.0) g/dL Urine Color Urine Appearance (Clear) Urine pH (5.0-8.0) Ur Specific [place] (1.001-1.035) Urine Protein (Negative) Urine Glucose (UA) (Negative) Urine Ketones (Negative) Urine Blood (Negative) Urine Nitrite (Negative) Urine Bilirubin (Negative) Urine Urobilinogen (<2.0) mg/dL Ur Leukocyte Esterase (Negative) Urine WBC (0-5) /hpf Ur Squamous Epith Cells (0-4) /hpf Amorphous Sediment (None) /hpf Urine Bacteria (None) /hpf Urine Mucus (None) /hpf Urine Opiates Screen (NotDetected) Ur Oxycodone Screen (NotDetected) Urine Methadone Screen (NotDetected) Ur Propoxyphene Screen (NotDetected) Ur Barbiturates Screen (NotDetected) U Tricyclic Antidepress (NotDetected) Ur Phencyclidine Scrn (NotDetected) Ur Amphetamines Screen (NotDetected) U Methamphetamines Scrn (NotDetected) U Benzodiazepines Scrn (NotDetected) Urine Cocaine Screen (NotDetected) U Marijuana (THC) Screen (NotDetected) Coronavirus (PCR) Not Detected (Not Detectd) Influenza Type A RNA Not Detected (Not Detectd) Influenza Type B (PCR) Not Detected (Not Detectd) Trichomonas Ag (Rapid) Negative (Negative) Blood Type Blood Type Recheck Bld Type Recheck Status Antibody Screen Spec Expiration Date 10/02/21 10/02/21 Range/Units 06:39 06:42 WBC (3.8-10.6) k/uL RBC (3.80-5.40) m/uL Hgb (11.4-16.0) gm/dL Hct (34.0-46.0) % MCV (80.0-100.0) fL MCH (25.0-35.0) pg MCHC (31.0-37.0) g/dL RDW (11.5-15.5) % Plt Count (150-450) k/uL MPV Neutrophils % % Lymphocytes % % Monocytes % % Eosinophils % % Basophils % % Neutrophils # (1.3-7.7) k/uL Lymphocytes # (1.0-4.8) k/uL Monocytes # (0-1.0) k/uL Eosinophils # (0-0.7) k/uL Basophils # (0-0.2) k/uL Sodium (137-145) mmol/L Potassium (3.5-5.1) mmol/L Chloride (98-107) mmol/L Carbon Dioxide (22-30) mmol/L Anion Gap mmol/L BUN (7-17) mg/dL Creatinine (0.52-1.04) mg/dL Est GFR (CKD-EPI)AfAm (>60 ml/min/1.73 sqM) Est GFR (CKD-EPI)NonAf (>60 ml/min/1.73 sqM) Glucose (74-99) mg/dL Calcium (8.4-10.2) mg/dL Total Bilirubin (0.2-1.3) mg/dL AST (14-36) U/L ALT (4-34) U/L Alkaline Phosphatase (38-126) U/L Total Protein (6.3-8.2) g/dL Albumin (3.5-5.0) g/dL Urine Color Urine Appearance (Clear) Urine pH (5.0-8.0) Ur Specific [place] (1.001-1.035) Urine Protein (Negative) Urine Glucose (UA) (Negative) Urine Ketones (Negative) Urine Blood (Negative) Urine Nitrite (Negative) Urine Bilirubin (Negative) Urine Urobilinogen (<2.0) mg/dL Ur Leukocyte Esterase (Negative) Urine WBC (0-5) /hpf Ur Squamous Epith Cells (0-4) /hpf Amorphous Sediment (None) /hpf Urine Bacteria (None) /hpf Urine Mucus (None) /hpf Urine Opiates Screen Detected H (NotDetected) Ur Oxycodone Screen Not Detected (NotDetected) Urine Methadone Screen Detected H (NotDetected) Ur Propoxyphene Screen Not Detected (NotDetected) Ur Barbiturates Screen Not Detected (NotDetected) U Tricyclic Antidepress Not Detected (NotDetected) Ur Phencyclidine Scrn Not Detected (NotDetected) Ur Amphetamines Screen Detected H (NotDetected) U Methamphetamines Scrn Detected H (NotDetected) U Benzodiazepines Scrn Not Detected (NotDetected) Urine Cocaine Screen Detected H (NotDetected) U Marijuana (THC) Screen Not Detected (NotDetected) Coronavirus (PCR) (Not Detectd) Influenza Type A RNA (Not Detectd) Influenza Type B (PCR) (Not Detectd) Trichomonas Ag (Rapid) (Negative) Blood Type AB Positive Blood Type Recheck AB Pos Bld Type Recheck Status No Antibody Screen NEGATIVE Spec Expiration Date 10/05/20212341 Disposition Clinical Impression: Polysubstance abuse, Second trimester , Dehydration Disposition: HOME SELF-CARE Condition: Fair Instructions (If sedation given, give patient instructions): Abdominal Pain in (ED) Additional Instructions: Continue Methadone. Follow up with COATER HELPER. Return to the ER for any worsening symptoms. Is patient prescribed a controlled substance at d/c from ED?: No Referrals: Ara Potts MD [STAFF PHYSICIAN] - 1-2 days Time of Disposition: 07:59
[2021-10-02] MEDS ORDERED: diphenhydrAMINE 50 MG/ML 1 ML VIAL IVP STA (06:46)
[2021-10-02 06:51] LABS: Basophils % (A) 0 %; Eosinophils # (A) 0.2 k/uL (0-0.7); Eosinophils % (A) 1 %; HCT 35.7 % (34.0-46.0); HGB 11.8 gm/dL (11.4-16.0); Lymphocytes # (A) 0.9 k/uL (1.0-4.8); Lymphocytes % (A) 7 %; MCH 28.5 pg (25.0-35.0); MCV 86.6 fL (80.0-100.0); Mean Platelet Volume 7.5; Monocytes # (A) 0.3 k/uL (0-1.0); Monocytes % (A) 2 %; Neutrophils # (A) 10.9 k/uL (1.3-7.7); Neutrophils % (A) 89 %; Platelet Count 460 k/uL (150-450); RBC 4.13 m/uL (3.80-5.40); RDW 12.9 % (11.5-15.5); WBC 12.3 k/uL (3.8-10.6)
[2021-10-02 07:01] LABS: ALT 18 U/L (4-34); AST 23 U/L (14-36); African American GFR (CKD) >90 (>60 ml/min/1.73 sqM); Albumin 4.3 g/dL (3.5-5.0); Alkaline Phosphatase 93 U/L (38-126); Anion Gap 14 mmol/L; Blood Urea Nitrogen 10 mg/dL (7-17); Calcium 9.3 mg/dL (8.4-10.2); Carbon Dioxide 16 mmol/L (22-30); Chloride 105 mmol/L (98-107); Glucose 102 mg/dL (74-99); Non-African American GFR(CKD) >90 (>60 ml/min/1.73 sqM); Potassium 3.8 mmol/L (3.5-5.1); Sodium 135 mmol/L (137-145); Total Protein 7.5 g/dL (6.3-8.2)
[2021-10-02 07:06] VITALS: BP 132/87; PULSE 68; RESP 16
[2021-10-02 07:16] LABS: Amorphous Sediment,Urine Rare /hpf; Appearance,Urine Turbid (Clear); Bacteria,Urine Occasional /hpf; Bilirubin,Urine Negative (Negative); Blood,Urine Negative (Negative); Color,Urine Yellow; Glucose,Urine (UA) Negative (Negative); Ketones,Urine 4+ (Negative); Leukocyte Esterase,Urine Moderate (Negative); Mucus,Urine Moderate /hpf; Nitrite,Urine Negative (Negative); PH, Urine 7.5 (5.0-8.0); Protein,Urine 1+ (Negative); Specific Gravity,Urine 1.024 (1.001-1.035); Squamous Epithelial Cell,Urine 36 /hpf (0-4); Urobilinogen,Urine <2.0 mg/dL (<2.0); WBC,Urine 7 /hpf (0-5)
[2021-10-02 07:20] LABS: Amphetamine Screen,Urine Detected (NotDetected); Barbiturate Screen,Urine Not Detected (NotDetected); Benzodiazepines Screen,Urine Not Detected (NotDetected); Cocaine Screen,Urine Detected (NotDetected); Methadone Screen, Urine Detected (NotDetected); Opiate Screen,Urine Detected (NotDetected); Oxycodone Screen, Urine Not Detected (NotDetected); Phencyclidine Screen,Urine Not Detected (NotDetected); Tricyclic Antidepressant,Urine Not Detected (NotDetected); Urn Cannabinoid Scrn Not Detected (NotDetected)
[2021-10-02] MEDS ORDERED: SODIUM CHLORIDE 0.9% 1,000 ML IV STA (07:28)
[2021-10-02] MEDS ORDERED: DEXTROSE 5%-0.45% NACL 1,000 ML IV ONE (07:29)
[2021-10-02 08:21] LABS: HCG,Quantitative Serum 80982.3 mIU/mL
[2021-10-04 06:42] LABS: C. trachomatis,PCR Negative (Neg,Equiv); Chlamydia trachomatis Source Vagina; N. gonorrhoeae,PCR Negative (Neg,Equiv); Neisseria Source Vagina
== END 2021-10-02 08:34 | disposition home or self-care (01) ==
LOC: EC 05:21
DX: O99.282 Endocrine, nutritional and metabolic diseases complicating pregnancy, second trimester (principal); O99.322 Drug use complicating pregnancy, second trimester; F19.10 Other psychoactive substance abuse, uncomplicated; O26.892 Other specified pregnancy related conditions, second trimester; R10.9 Unspecified abdominal pain; O99.512 Diseases of the respiratory system complicating pregnancy, second trimester; J45.909 Unspecified asthma, uncomplicated; Z3A.17 17 weeks gestation of pregnancy; Z20.822 Contact with and (suspected) exposure to COVID-19; Z67.30 Type AB blood, Rh positive; E86.0 Dehydration; Z88.5 Allergy status to narcotic agent
CPT/HCPCS: 36415; 86900; 86901; 80053; 85025; 86850; 81001; 84702; 87808; 87491; 87591; 80306; 87502; 87635; 76805; 99284; 96374; 96375; 96361; J1200; J2765

== ENCOUNTER 2021-12-07 21:11 | Emergency (ER) | payer OTHER ==
[2021-12-07 22:08] VITALS: TEMP 97.9
[2021-12-07 22:31] LABS: Basophils % (A) 0 %; Eosinophils # (A) 0.1 k/uL (0-0.7); Eosinophils % (A) 1 %; HCT 25.1 % (34.0-46.0); Lymphocytes # (A) 1.7 k/uL (1.0-4.8); Lymphocytes % (A) 15 %; MCH 27.8 pg (25.0-35.0); MCHC 32.7 g/dL (31.0-37.0); MCV 85.2 fL (80.0-100.0); Mean Platelet Volume 8.9; Monocytes # (A) 0.5 k/uL (0-1.0); Monocytes % (A) 4 %; Neutrophils # (A) 8.9 k/uL (1.3-7.7); Neutrophils % (A) 78 %; Platelet Count 366 k/uL (150-450); RBC 2.95 m/uL (3.80-5.40); WBC 11.3 k/uL (3.8-10.6)
[2021-12-07 22:40] LABS: ALT 30 U/L (4-34); AST 36 U/L (14-36); African American GFR (CKD) >90 (>60 ml/min/1.73 sqM); Albumin 3.2 g/dL (3.5-5.0); Alkaline Phosphatase 90 U/L (38-126); Anion Gap 4 mmol/L; Blood Urea Nitrogen 8 mg/dL (7-17); Calcium 9.5 mg/dL (8.4-10.2); Carbon Dioxide 25 mmol/L (22-30); Chloride 102 mmol/L (98-107); Glucose 88 mg/dL (74-99); LDH 557 U/L (313-618); Non-African American GFR(CKD) >90 (>60 ml/min/1.73 sqM); Potassium 3.7 mmol/L (3.5-5.1); Sodium 131 mmol/L (137-145); Total Bilirubin 0.3 mg/dL (0.2-1.3); Total Protein 5.7 g/dL (6.3-8.2); Uric Acid 3.1 mg/dL (3.7-7.4)
[2021-12-07 22:46] LABS: HGB 8.2 gm/dL (11.4-16.0)
--- NOTE | 2021-12-07 23:20 | ED ---
Extremity Problem HPI - General Source: patient Mode of arrival: ambulatory Limitations: no limitations <Sho Osman - Last Filed: 12/07/21 23:27> <Raji Mauro - Last Filed: 12/12/21 05:40> - General Chief complaint: Extremity Problem,Nontraumatic Stated complaint: Feet/Leg Swelling, 27 wks - History of Present Illness Initial comments: 41-year-old female who is presents emergency department approximately 27 weeks . He did not have any issues with her previous pregnancies including gestational diabetes or preeclampsia. She did have a 4 vaginal deliveries. She is currently scheduled to see an STORAGE BATTERY INSPECTOR out of [place] on Saturday. She has been attending a clinic thus far. She takes a vitamin and is on methadone. Over the past couple of days she has noted increased swelling in her lower extremities. States that she has had some swelling however this has become significant. No history of cardiomyopathy. She denies chest pain. No history of DVT or PE. No other alleviating, preci pitating or modifying factors (Sho Osman) - Related Data Home Medications Medication Instructions Recorded Confirmed Lisdexamfetamine Dimesylate 50 mg PO DAILY 10/18/18 12/07/21 [Vyvanse] Methadone [Dolophine] 30 mg PO DAILY 12/07/21 12/07/21 Allergies Allergy/AdvReac Type Severity Reaction Status Date / Time codeine Allergy Itching Verified 12/07/21 20:15 Review of Systems ROS Other: All systems not noted in ROS Statement are negative. <Sho Osman - Last Filed: 12/07/21 23:27> ROS Other: All systems not noted in ROS Statement are negative. <Raji Mauro - Last Filed: 12/12/21 05:40> ROS Statement: Those systems with pertinent positive or pertinent negative responses have been documented in the HPI. Past Medical History Past Medical History: Asthma, Liver Disease Additional Past Medical History / Comment(s): hepatitis c-no current problems, closed head injury as child, allergy induced asthma, no current rx History of Any Multi-Drug Resistant Organisms: None Reported Past Surgical History: Tonsillectomy Additional Past Surgical History / Comment(s): L hand surgery, left leg surg. related to dog bite-wound cleaned out Past Anesthesia/Blood Transfusion Reactions: No Reported Reaction Past Psychological History: ADD/ADHD, Anxiety, Depression Past Alcohol Use History: None Reported Past Drug Use History: Heroin - Past Family History Mother Family Medical History: No Reported History <Sho Osman - Last Filed: 12/07/21 23:27> General Exam Limitations: no limitations General appearance: alert, in no apparent distress Head exam: Present: atraumatic, normocephalic, normal inspection Eye exam: Present: normal appearance, PERRL, EOMI. Absent: scleral icterus, conjunctival injection, periorbital swelling ENT exam: Present: normal exam, mucous membranes moist Neck exam: Present: normal inspection. Absent: tenderness, meningismus, lymphadenopathy Respiratory exam: Present: normal lung sounds bilaterally. Absent: respiratory distress, wheezes, rales, rhonchi, stridor Cardiovascular Exam: Present: regular rate, normal rhythm, normal heart sounds. Absent: systolic murmur, diastolic murmur, rubs, gallop, clicks GI/Abdominal exam: Present: soft, normal bowel sounds, other (Gravid abdomen with positive movement). Absent: distended, tenderness, guarding, rebound, rigid Extremities exam: Present: normal inspection, full ROM, normal capillary refill, pedal edema (3+ ). Absent: tenderness, joint swelling, calf tenderness Back exam: Present: normal inspection Neurological exam: Present: alert, oriented X3, CN II-XII intact Psychiatric exam: Present: normal affect, normal mood Skin exam: Present: warm, dry, intact, normal color. Absent: rash <Sho Osman - Last Filed: 12/07/21 23:27> Course Vital Signs 12/07/21 12/08/21 21:52 04:29 Temperature 97.9 F Pulse Rate 92 73 Respiratory 16 18 Rate Blood Pressure 115/68 104/64 O2 Sat by Pulse 99 97 Oximetry Medical Decision Making - Lab Data Result diagrams: 12/07/21 22:19 12/07/21 22:19 <Sho Osman - Last Filed: 12/07/21 23:27> - Lab Data Result diagrams: 12/07/21 22:19 12/07/21 22:19 <Raji Mauro - Last Filed: 12/12/21 05:40> - Medical Decision Making Upon arrival patient was placed in room 3. History and physical exam was performed. IV access is established and laboratory were conducted. Ultrasound of the bilateral lower extremities was performed. Patient will be signed out to Dr. Hinds for disposition (Sho Osman) 's patient is a 41-year-old woman signed out to me pending study results. I reviewed the results with the patient who is feeling well and would like to go home. She does have established follow-up with the valve maker and appears stable to follow this plan. Discussed appropriate return parameters. (Raji Mauro) - Lab Data Lab Results 12/07/21 12/07/21 12/07/21 Range/Units 22:19 22:19 22:19 WBC 11.3 H (3.8-10.6) k/uL RBC 2.95 L (3.80-5.40) m/uL Hgb 8.2 L D (11.4-16.0) gm/dL Hct 25.1 L (34.0-46.0) % MCV 85.2 (80.0-100.0) fL MCH 27.8 (25.0-35.0) pg MCHC 32.7 (31.0-37.0) g/dL RDW 14.0 (11.5-15.5) % Plt Count 366 (150-450) k/uL MPV 8.9 Neutrophils % 78 % Lymphocytes % 15 % Monocytes % 4 % Eosinophils % 1 % Basophils % 0 % Neutrophils # 8.9 H (1.3-7.7) k/uL Lymphocytes # 1.7 (1.0-4.8) k/uL Monocytes # 0.5 (0-1.0) k/uL Eosinophils # 0.1 (0-0.7) k/uL Basophils # 0.0 (0-0.2) k/uL Sodium 131 L (137-145) mmol/L Potassium 3.7 (3.5-5.1) mmol/L Chloride 102 (98-107) mmol/L Carbon Dioxide 25 (22-30) mmol/L Anion Gap 4 mmol/L BUN 8 (7-17) mg/dL Creatinine 0.57 (0.52-1.04) mg/dL Est GFR (CKD-EPI)AfAm >90 (>60 ml/min/1.73 sqM) Est GFR (CKD-EPI)NonAf >90 (>60 ml/min/1.73 sqM) Glucose 88 (74-99) mg/dL Uric Acid 3.1 L (3.7-7.4) mg/dL Calcium 9.5 (8.4-10.2) mg/dL Total Bilirubin 0.3 (0.2-1.3) mg/dL AST 36 (14-36) U/L ALT 30 (4-34) U/L Alkaline Phosphatase 90 (38-126) U/L Lactate Dehydrogenase 557 (313-618) U/L NT-Pro-B Natriuret Pep 24 pg/mL Total Protein 5.7 L (6.3-8.2) g/dL Albumin 3.2 L (3.5-5.0) g/dL Disposition <Sho Osman - Last Filed: 12/07/21 23:27> Is patient prescribed a controlled substance at d/c from ED?: No <Raji Mauro - Last Filed: 12/12/21 05:40> Clinical Impression: Leg edema Disposition: HOME SELF-CARE Condition: Good Instructions (If sedation given, give patient instructions): Leg Edema (ED) Referrals: None,Stated [Primary Care Provider] - 1-2 days
--- NOTE | 2021-12-08 01:59 | US ---
EXAMINATION TYPE: US venous doppler duplex LE DATE OF EXAM: 12/07/2021 10:44 PM COMPARISON: NONE CLINICAL HISTORY: lower extremity edema. Bilateral leg swelling, 27 weeks SIDE PERFORMED: Bilateral TECHNIQUE: The lower extremity deep venous system is examined utilizing real time linear array sonog juliano with graded compression, doppler sonography and color-flow sonography. VESSELS IMAGED: Common Femoral Vein Deep Femoral Vein Greater Saphenous Vein * Femoral Vein Popliteal Vein Small Saphenous Vein * Proximal Calf Veins (* superficial vessels) Right Leg: Appears negative for DVT Left Leg: Appears negative for DVT IMPRESSION: No evidence of deep vein thrombosis in both legs.
[2021-12-08 04:29] VITALS: BP 104/64; PULSE 73; RESP 18
== END 2021-12-08 04:31 | disposition home or self-care (01) ==
LOC: EC 21:11
DX: O99.891 Other specified diseases and conditions complicating pregnancy (principal); R60.0 Localized edema; O99.512 Diseases of the respiratory system complicating pregnancy, second trimester; J45.909 Unspecified asthma, uncomplicated; Z3A.27 27 weeks gestation of pregnancy; Z88.5 Allergy status to narcotic agent
CPT/HCPCS: 36415; 80053; 82239; 83615; 83880; 84550; 85025; 93970; 99284